=== PATIENT | female | born 1965 | race Two or more races ===

== ENCOUNTER 2016-09-05 06:31 | Day surgery (SDC) | payer OTHER ==
[~2016-09-05 06:31] MED LIST: LIDOCAINE W/ SODIUM BICARB 0.5 ML SYR ONE; Lactated Ringers 2,000 ML PRIMARY IV ONE; Sodium Chloride 0.9% 100 ML IV ONE
[2016-09-05 06:52] LABS: BILIRUBIN,URINE NEGATIVE (NEG); COLOR,URINE YELLOW; GLUCOSE, URINE (UA) NEGATIVE (NEG); NITRATE,URINE NEGATIVE (NEG); OCCULT BLOOD,URINE MODERATE (NEG); PH,URINE 5.5 (5.0-8.5); PROTEIN,URINE NEGATIVE (NEG); UROBILINOGEN,URINE 0.2 EU/dL (0.2)
[2016-09-05 06:53] LABS: URINE SPECIFIC GRAVITY - MAN 1.025
[2016-09-05] MEDS ORDERED: LIDOCAINE HCL 2 % 10 ML JELLY URO-JECT TOPICAL ONE (06:55)
[2016-09-05] MEDS ORDERED: BUPIVACAINE 0.25% W/ EPI - 10 ML VIAL ONE (06:56)
[2016-09-05 06:57] LABS: CLARITY,URINE CLEAR (CLEAR)
[2016-09-05] MEDS ORDERED: NORMAL SALINE 10 ML IVP ONE (06:57)
[2016-09-05] MEDS ORDERED: KETOROLAC 30 MG/1 ML VIAL IVP ONE (06:57)
[2016-09-05] MEDS ORDERED: fentaNYL Inj 250 MCG/5 ML VIAL IVP ONE (06:57)
[2016-09-05] MEDS ORDERED: SUFENTANIL 50 MCG/1 ML IV ONE (06:57)
[2016-09-05] MEDS ORDERED: LIDOCAINE MPF 2% - 5 ML (20 MG/1 ML) IV ONE (06:57)
[2016-09-05] MEDS ORDERED: PROPOFOL 10 MG/1 ML (200 MG/20 ML) VIAL IV ONE (06:57)
[2016-09-05] MEDS ORDERED: Lactated Ringers 1,000 ML PRIMARY IV ONE (06:57)
[2016-09-05] MEDS ORDERED: MIDAZOLAM 5 MG/1 ML IVP ONE (06:57)
[2016-09-05] MEDS ORDERED: ROCURONIUM 10 MG/1 ML - 5 ML VIAL IVP ONE (06:57)
[2016-09-05] MEDS ORDERED: SUGAMMADEX SODIUM 200 MG/2 ML VIAL IV ONE (06:57)
[2016-09-05] MEDS ORDERED: KETAMINE 100 MG/1 ML - 5 ML IV ONE (06:57)
[2016-09-05 06:58] LABS: URINE SAMPLE TYPE CLEAN CATCH URINE
[2016-09-05 07:01] LABS: BACTERIA,URINE MANY; SQUAMOUS EPITHELIAL CELL,UR MANY
[2016-09-05 07:05] LABS: HEMATOCRIT 33.5 % (37.0-47.0); HEMOGLOBIN 10.4 g/dL (12.0-16.0)
[2016-09-05 07:06] VITALS: RESP 14; TEMP 97.6
[2016-09-05] MEDS ORDERED: ONDANSETRON 4 MG/2 ML VIAL ONE (07:14)
[2016-09-05] MEDS ORDERED: DEXAMETHASONE PF 10 MG/1 ML VIAL ONE (07:14)
[2016-09-05] MEDS ORDERED: Acetaminophen 1000mg Inj 100 ML IV ONE (07:14)
[2016-09-05] MEDS ORDERED: Opium-Belladonna 60-16.2mg 1 EACH SUPP.RECT RECTAL ONE (09:46)
[2016-09-05] MEDS ORDERED: NORMAL SALINE 10 ML SYRINGE FLUSH IVP PRN ×2 (10:04→11:22)
[2016-09-05] MEDS ORDERED: KETOROLAC 30 MG/1 ML VIAL IVP PRN (10:04)
[2016-09-05] MEDS ORDERED: IBUPROFEN 800 MG TABLET PO PRN (10:04)
[2016-09-05] MEDS ORDERED: HYDROcodone-APAP 7.5 MG-325 MG TABLET PO PRN (10:04)
[2016-09-05] MEDS ORDERED: Ondansetron ODT Tab 8 MG TAB PO PRN (10:04)
--- NOTE | 2016-09-05 10:10 | OB.OP.NOTE ---
Operative Report Surgeon: Anjum Pathology Technologist: Ifeanyi Boothe MD Anesthesia Type: General Anesthesia Provider: Jeffry Terry CRNA Surgery Date: 09/05/16 Preoperative Diagnosis: MMR/Dysmenorrhea/DEANN/Fibroids Postoperative Diagnosis: Same Procedure: da Bree Hysterectomy/BSO/TVT-O/Cystoscopy Estimated Blood Loss (mL): 100 Fluids: 2800 ml Complications: None Findings at Surgery: Diffusely enlarged, fibroid uterus with normal right ovary. Left ovary with a 2.5 cm follicular cyst. Normal tubes. No visible evidence of bowel, bladder, or ureter injury. At cysto, both ureters ejected urine and the bladder dome was intact. Indications for the Procedure: MMR/Dysmenorrhea/Fibroids, DEANN Description of Procedure: See dictated operative report. Plan: Routine post op care and discharge to home.
[2016-09-05] MEDS ORDERED: HYDROmorphone 2 MG/1 ML ONE (11:08)
[2016-09-05] MEDS ORDERED: fentaNYL Inj 100 MCG/2 ML VIAL IVP PRN (11:22)
[2016-09-05] MEDS ORDERED: HYDROmorphone 2 MG/1 ML IVP PRN (11:22)
[2016-09-05] MEDS ORDERED: Lactated Ringers 1,000 ML PRIMARY IV SCH (11:30)
[2016-09-05] MEDS ORDERED: DOCUSATE 100 MG CAPSULE PO SCH (21:00)
== END 2016-09-05 14:00 | disposition home or self-care (01) ==
LOC: SDSC 06:31
PROVIDERS: ATTEND Obstetrics & Gynecology
DX: N92.1 Excessive and frequent menstruation with irregular cycle (principal); N94.6 Dysmenorrhea, unspecified; D25.9 Leiomyoma of uterus, unspecified; N39.3 Stress incontinence (female) (male)
CPT/HCPCS: 57288; 58552; 81001; 84703; 85014; 85018; A4216; J0131; J0694; J1885; J2704; J3010; J1100; J1170; J2001; J2250; J2405; J3490; J7050; J7120